=== PATIENT | female | born 1980 | race Caucasian/White ===

== ENCOUNTER 2018-08-21 14:15 | Inpatient (IN) | payer MEDICAID, OTHER ==
--- NOTE | 2018-08-21 15:22 | PDOC.FPROB ---
FMR OB H&P: HPI - History of Present Illness Chief Complaint: Medically indicated IOL for arrhythmia Indentification: 38 yo at 39.5 wks by 27.5 wk US History of Present Illness: This is a 38 yo at 39.5 wks by 27.5 wk US who presents to L&D for a scheduled induction for arrhythmia. Pt reports FM. Pt denies chest pain, changes in vision, LOF, vaginal bleeding, nausea, or vomiting. Patient states she has intermittent contractions, but nothing has been regular. When she does have contractions they are not strong. Primary Care Physician: Popeye Moseley MD FMR OB H&P: Current - Care : 5 Para: 2021 Gestational age: 39.5 Due date: 08/23/18 Dating Criteria: 27.5 wk US Course/Complications: Alcohol and tobacco use through 25 weeks Late to care, 25 weeks Dates by 27.5 wk US AMA Gallbladder discomfort - OB Labs Blood type: AB RH: positive Antibody Screen: negative HIV: negative RPR: negative HepBsAg: negative Rubella: immune Urine drug screen: negative Gonorrhea: negative Chlamydia: negative Pap Smear: HPV HIGH risk 1 hour gtt: positive 3 hour GTT: Negative A1c: 5.1 GBS: negative H&H: 12.1/34.8 (07/14/18) Platelets: 283 (07/14/18) - Additional Ultrasound Additional: Echocardiogram performed at 37.1wks 1. Intermittent, mostly conducted premature atrial contractions. No scot or tachyarrhythmia. 2. No evident cardiac structural abnormalities, given the limitations of echocardiography to detect small septal defects, minor valve anomalies, anomalies of pulmonary venous return, and patent foramen ovale, patent ductus arteriosus, or coarctation of the aorta 3. Normal biventricular size and systolic function 4. No pericardial effusion or evidence of hydrops 5. Normal hemodynamic doppler assessment FMR OB H&P: History - Past Medical History PMH: Gallbladder problems - OB History OB History: First 2001, 9 wk Spontaneous Second 2003, 9 wk spontaneous Third 2005, at 40wks, Female 7 lb, 12 oz Fourth 2008, at 40wks, Male 7lb, 10 oz - RELIGIOUS EDUCATION COORDINATOR History RELIGIOUS EDUCATION COORDINATOR History: Menses at 12/regular. No h/o STI or herpes. No h/o abnormal pap - Surgical History Sx History: none - Social History Social History: Reports 3 bottles of wine per week until week 25 Reports smoking while she drank until week 25 - Family History Family History: No family history of cancers or inheritable/genetic disorders FMR OB H&P: Medications - Current Home Medications: Medication Instructions Recorded Confirmed Type Pnv No.95/Ferrous Fum/Folic AC 1 tab PO DAILY 08/21/18 08/21/18 History [ Vitamins Tablet] Allergies/Adverse Reactions: Allergies Allergy/AdvReac Type Severity Reaction Status Date / Time No Allergy Information Allergy Verified 08/21/18 21:15 Available FMR OB H&P: ROS - Review of Systems General: denies: fever/chills, weight/appetite/sleep changes Eyes: denies: vision changes, scotomas ENT: denies: nasal congestion, rhinorrhea, sore throat Cardiovascular: denies: chest pain, palpitation, edema Respiratory: denies: cough, congestion, shortness of breath Gastrointestinal: denies: abdominal pain, nausea, vomiting, diarrhea, constipation Genitourinary (Female): reports: contractions. denies: dysuria, vaginal discharge, vaginal pain, vaginal bleeding, vaginal pressure Musculoskeletal: denies: pain, stiffness Neurologic: denies: numbness, syncope Integumentary: denies: itching, rash, lesions Hematologic/Lymphatic: denies: prolonged or excessive bleeding Psychological: denies: depression, anxiety FMR OB H&P: Vital Signs - Maternal Vital signs: BP 103/54 Pulse 90 Afebrile - Heart Tones Baseline: 140 Variability: moderate Acceleration: present Deceleration: absent Category: category 1 [place] contractions every: Irregular FMR OB H&P: Physical Exam - Physical Exam General: NAD, awake, alert and oriented HEENT: MMM, grossly normal vision, grossly normal hearing Neck: supple Heart: RRR, normal S1/S2, no murmurs/rubs/gallops General: CTAB, no respiratory distress Abdomen: soft, gravid, non-tender, bowel sound present Musculoskeletal: pulses present, FROM in all four extremities Neurological: no tremor, no focal deficit Skin: no rash, capillary refill <2 seconds Lymphatic: no unusual bruising or bleeding, no purpura Psychiatric: intact recent and remote memory, good judgement and insight, normal mood and affect - Pelvic Exam Vulva: normal hair distribution, appropriate sharla stage, no lesions, no discharge, no blood SVE: at 22:30 10/02/-3 Valdez score: 5 FMR OB H&P: A/P - Problem List (1) Term Current Visit: No Status: Acute Code(s): Z34.80 - ENCOUNTER FOR SUPRVSN OF NORMAL , UNSP TRIMESTER (2) cardiac arrhythmia Current Visit: No Status: Acute Code(s): GAR5151 - (3) Advanced maternal age (AMA) in Current Visit: No Status: Acute Code(s): UZF4788 - (4) Alcohol use affecting Current Visit: No Status: Acute Code(s): O99.310 - ALCOHOL USE COMPLICATING , UNSPECIFIED TRIMESTER (5) Tobacco use affecting in first trimester, antepartum Current Visit: No Status: Acute Code(s): O99.331 - SMOKING (TOBACCO) COMPLICATING , FIRST TRIMESTER (6) Tobacco use affecting in second trimester, antepartum Current Visit: No Status: Acute Code(s): O99.332 - SMOKING (TOBACCO) COMPLICATING , SECOND TRIMESTER (7) Encounter for induction of labor Current Visit: No Status: Acute Code(s): Z34.90 - ENCNTR FOR SUPRVSN OF NORMAL , UNSP, UNSP TRIMESTER Disposition: This is a at 39. by a 27.5 wk US (TJ 08/23/18) here for a scheduled induction for arrhythmia Term sIUP -Admit to L&D -LR 125 ml/hr -Initial cervical check: 3 at 22:30 -Valdez score 5; patient with 2 prior 's -Begin pitocin for augmentation arrhythmia -Following with MFM, recommended 39 wk IOL -Intermittent mostly conducted premature atrial contractions. No scot or tachyarrhythmia. Late to care -At ~25 wks exposure to tobacco and alcohol during first and second trimester -Stopped cold after realizing she was -Negative UDS in -Will repeat UDS AMA -Presented out of window for quad screen -Was following with MFM Gallbladder discomfort -Unknown significance, will likely need GI follow up Discussion: Date/Time: 02/11/19 1520 This H&P was discussed with Dr. Metcalf who agrees with the above documentation and plan. Signature: Stephanie Telles, DO PGY-2
[2018-08-21] MEDS ORDERED: Docusate 100 MG CAP PO PRN (21:07)
[2018-08-21] MEDS ORDERED: Acetaminophen 500 MG TAB PO PRN (21:07)
[2018-08-21] MEDS ORDERED: Promethazine HCl 25 MG/ML VIAL IM PRN (21:07)
[2018-08-21] MEDS ORDERED: Ondansetron PF 4 MG/2 ML Vial IVP PRN (21:07)
[2018-08-21] MEDS ORDERED: Lidocaine 1% (PF) 30 ML VIAL SC PRN (21:07)
[2018-08-21] MEDS ORDERED: Ibuprofen 800 MG TAB PO PRN (21:07)
[2018-08-21] MEDS: Lactated Ringer's 1,000 ML IV SCH (21:22)
[2018-08-21 21:58] LABS: Hemoglobin 12.4 g/dL (12.0-16.0); Mean Corpuscular Hemoglobin 30.2 pg (27.0-31.0); Mean Corpuscular Volume 88.9 fL (78.0-98.0); Mean Platelet Volume 7.8 fL (7.4-10.4); Platelet Count 258 thou/uL (130-400); RBC Distribution Width 12.1 % (11.5-14.5); White Blood Cell (WBC) Count 13.6 thou/uL (4.8-10.8)
[2018-08-21 22:36] LABS: Syphilis Antibody Nonreactive (Nonreactive); Syphilis Antibody Index 0.04 S/CO (<1.00 Non-Reactive)
[2018-08-21] MEDS ORDERED: NS w/ Oxytocin 10 units 500 ML IV SCH (22:45)
[2018-08-21 23:52] LABS: HBSAg Index 0.18 S/CO (0-0.99); Hep B Surf Ag Non-Reactive S/CO (NonReactive)
[2018-08-22 00:22] VITALS: BMI 33.3
[2018-08-22] MEDS ORDERED: Fentanyl 4 mcg/Bup 0.1% Cadd 100 ML ONE (00:55)
--- NOTE | 2018-08-22 01:01 | PDOC.LDPN ---
Labor & Delivery Progress Note - Subjective Subjective: painful contractions - Objective Vital signs reviewed and normal: yes General: NAD, breathing through contractions Uterine fundus: non tender Dilation: 4 Effacement: 50% Station: -2 FHT: category 1 (baseline 140, accelerations, no decels, moderate variability ) [place] contractions every: 3-4 mins Plan: continue plan of care -: Term sIUP -continue monitoring -LR 125 ml/hr - continue pitocin for augmentation - recheck in 2 hours
[2018-08-22] MEDS ORDERED: Lidocaine 1.5%/Epinephrine 1:200,000 5 ML AMPUL IJ ONE (01:08)
[2018-08-22] MEDS ORDERED: Ondansetron PF 4 MG/2 ML Vial IVP PRN ×2 (01:22→09:52)
[2018-08-22] MEDS ORDERED: ePHEDrine/0.9% NaCl/PF SYRINGE 50 mg/10 ml SLOW IVP PRN (01:22)
[2018-08-22] MEDS ORDERED: Naloxone HCl 0.4 mg/ml Vial IVP PRN ×2 (01:22)
[2018-08-22] MEDS ORDERED: diphenhydrAMINE 50 MG/ML VIAL IVP PRN (01:22)
[2018-08-22] MEDS ORDERED: Lactated Ringer's 500 ML IV PRN (01:22)
[2018-08-22] MEDS ORDERED: Eucerin (Mineral Oil/Petrolatum,White) 30 gm Jar TOP PRN (01:22)
[2018-08-22] MEDS ORDERED: Promethazine HCl 25 MG/ML VIAL IM PRN (01:22)
[2018-08-22] MEDS: Lactated Ringer's 1,000 ML IV SCH (01:24)
[2018-08-22] MEDS ORDERED: Communication Order-Pharmacy FS SCH (01:30)
[2018-08-22] MEDS ORDERED: Fentanyl 4 mcg/Bupivacaine 0.1% Cassette 100 ML EPIDURAL SCH (01:30)
--- NOTE | 2018-08-22 04:30 | PDOC.LDPN ---
Labor & Delivery Progress Note - Subjective Subjective: comfortable - Objective Vital signs reviewed and normal: yes General: NAD Uterine fundus: non tender Dilation: 4 Effacement: 50% Station: -2 FHT: category 1 (baseline 150, moderate variability, accelerations, no decels ) [place] contractions every: 2-3 mins Plan: continue plan of care -: Term sIUP -continue monitoring -LR 125 ml/hr - continue pitocin for augmentation - recheck in 2 hours
[2018-08-22] MEDS ORDERED: SODIUM CHLORIDE 0.9% EPIDURAL SCH (06:00)
[2018-08-22] MEDS ORDERED: BUPIVACAINE 0.5% EPIDURAL SCH (06:00)
--- NOTE | 2018-08-22 06:46 | PDOC.LDPN ---
Labor & Delivery Progress Note - Subjective Subjective: painful contractions - Objective Vital signs reviewed and normal: yes General: NAD Uterine fundus: non tender Dilation: complete Effacement: 100% Station: 1+ FHT: category 1 [place] contractions every: 2-3 mins AROM: clear fluid -: sIUP - complete cervix, epidural DCd 2/2 rxn - prepare for delivery
[2018-08-22] MEDS: NS / Oxytocin 40 units/1000ml 1,000 ML IV PRN ×2 (07:40→09:49)
[2018-08-22] MEDS ORDERED: Preparation H Ointment 28 GM TUBE PR PRN (09:52)
[2018-08-22] MEDS ORDERED: NS / Oxytocin 40 units/1000ml 1,000 ML IV SCH (09:52)
[2018-08-22] MEDS ORDERED: Adacel (T-DAP) 0.5 ML SYRINGE IM ONE (09:52)
[2018-08-22] MEDS ORDERED: Lanolin Ointment 7 GM TUBE TOP PRN (09:52)
[2018-08-22] MEDS ORDERED: Benzocaine/Menthol 20-0.5% 60 ML CAN TOP PRN (09:52)
[2018-08-22] MEDS ORDERED: Milk Of Magnesia 30 ML UDCUP PO PRN (09:52)
[2018-08-22] MEDS ORDERED: Bisacodyl 10 MG SUPP PR PRN (09:52)
[2018-08-22] MEDS ORDERED: Prenatal Vitamin 1 TAB PO SCH (10:45)
[2018-08-22] MEDS ORDERED: Docusate Calcium (SURFAK) 240 MG CAP PO SCH (10:45)
--- NOTE | 2018-08-22 10:45 | PDOC.EVN ---
Event Note - Event Note Event Note: Date/Time: 08/22/18 1040 I was present, assisted and supervised the vacuum assisted vaginal delivery of a viable female infant over an intact perineum. Apgars 8/9. Vacuum assisted delivery of decelerations need to expedite delivery. Vacuum cup placed on occiput. Single pull, no popoffs resulted in delivery of vertex in OP position. Shoulders and body delivered easily. No nuchal cords. Cords clamped and cut and taken to warmer for evaluation. 3V Cord. Placenta delivered spontaneously and intact. 2* perineal laceration repaired with 3-0 vicryl in usual fashion with good hemostasis. EBL 250 mL. Residents: Rafy/Lorelei
[2018-08-22] MEDS: Prenatal Vitamin 1 TAB PO SCH (13:33)
[2018-08-22] MEDS: Acetaminophen 325 MG TAB PO PRN ×2 (13:34→20:49)
[2018-08-22] MEDS: Ferrous Sulfate 325 MG TAB PO SCH (17:11)
[2018-08-22] MEDS: Ibuprofen 800 MG TAB PO SCH ×2 (17:40→23:45)
[2018-08-22] MEDS: Docusate Calcium (SURFAK) 240 MG CAP PO SCH (20:49)
[2018-08-23] MEDS: Ibuprofen 800 MG TAB PO SCH ×3 (06:31→21:20)
[2018-08-23] MEDS: Ferrous Sulfate 325 MG TAB PO SCH ×2 (08:17→17:42)
[2018-08-23] MEDS: Prenatal Vitamin 1 TAB PO SCH (08:18)
[2018-08-23] MEDS: Docusate Calcium (SURFAK) 240 MG CAP PO SCH ×2 (08:18→20:06)
--- NOTE | 2018-08-23 22:35 | PDOC.PP ---
Post Progress Note Post Day #: 1 Subjective: Patient denies complaints. Bleeding minimal. No pain. PO intake tolerated: yes Flatus: yes Ambulation: yes Vital Signs (12 hours) Temp Pulse Resp BP Pulse Ox 08/23/18 20:45 97.6 F 81 16 119/70 98 08/23/18 17:15 97.9 F 81 18 120/67 97 Weight Weight 90.718 kg - Physical Examination Cardiovascular: no m/r/g, RRR Respiratory: clear to auscultation bilaterally Abdominal: lochia, no distention Fundus firm & at: umbilicus Extremities: negative homans (B) Skin: no rash Psychiatric: A&Ox3, normal affect Result Diagrams: 08/21/18 21:22 Additional Labs: Post Labs Blood Type AB POSITIVE 08/21/18 21:22 Hep Bs Antigen Non-Reactive S/CO (NonReactive) 08/21/18 21:22 (1) Term Code(s): Z34.80 - ENCOUNTER FOR SUPRVSN OF NORMAL , UNSP TRIMESTER Status: Acute - Assessment/Plan A/P: 1) PPD#1 S/p VAVD- doing well. continue routine care. D/c home tomorrow
[2018-08-24] MEDS: Ibuprofen 800 MG TAB PO SCH (05:33)
[2018-08-24 08:20] VITALS: BP 98/51; TEMP 98
--- NOTE | 2018-08-24 09:15 | PDOC.PP ---
Post Progress Note Post Day #: 2 Subjective: pt doing well. no acute events overnight. denies minimal pain. controlled by motrin. Reports light lochia. up and getting around. Denies any dizziness, lightheadness or vision changes. denies any chest pain, sob or swelling. tolerating PO PO intake tolerated: yes Flatus: yes Ambulation: yes Vital Signs (12 hours) Temp Pulse Resp BP Pulse Ox 08/24/18 08:19 98.0 F 71 20 98/51 L 95 Weight Weight 90.718 kg - Physical Examination General: NAD Cardiovascular: no m/r/g, RRR Respiratory: clear to auscultation bilaterally, non-labored breathing Abdominal: + bowel sounds, lochia (reports as minimal), no distention, appropriately TTP Extremities: negative homans (B) Neurological: no gross focal deficits Psychiatric: A&Ox3, normal affect Result Diagrams: 08/21/18 21:22 Additional Labs: Post Labs Blood Type AB POSITIVE 08/21/18 21:22 Hep Bs Antigen Non-Reactive S/CO (NonReactive) 08/21/18 21:22 (1) Advanced maternal age (AMA) in Code(s): [id number] - Status: Acute (2) Alcohol use affecting Code(s): O99.310 - ALCOHOL USE COMPLICATING , UNSPECIFIED TRIMESTER Status: Acute (3) Term Code(s): Z34.80 - ENCOUNTER FOR SUPRVSN OF NORMAL , UNSP TRIMESTER Status: Acute (4) Tobacco use affecting in first trimester, antepartum Code(s): O99.331 - SMOKING (TOBACCO) COMPLICATING , FIRST TRIMESTER Status: Acute (5) Tobacco use affecting in second trimester, antepartum Code(s): O99.332 - SMOKING (TOBACCO) COMPLICATING , SECOND TRIMESTER Status: Acute - Assessment/Plan This is a ->3 who delivred a BETTY F @ 39.6 wks dated by a 27.5 wk US (TJ ) via vacuum assisted delivery on 06/21/19 Term , Delivered. -2 degree laceration repaired- intact, no sign redness or drainage. Pt reports pain well controlled with motrin. -Pt tolerating PO. Reports bleeding as minimal. -Bottle feeding -Routine post care Late to care -At ~25 wks exposure to tobacco and alcohol during first and second trimester -Stopped cold after realizing she was -Negative UDS in - AMA -Presented out of window for quad screen -Was following with MFM, following their recs Addendum - Attending - Attending Attestation Date/Time: 08/24/18 1352 I personally evaluated the patient and discussed the management with Dr. Moseley I agree with the History, Examination, Assessment and Plan documented above with any addition or exceptions noted below- Patient without complaints. Afebrile VSS. A/P: 1) PPD#2 s/p VAVD- Plan to d/c home today. F/u in 2 weeks at [facility].
[2018-08-24] MEDS: Ferrous Sulfate 325 MG TAB PO SCH (09:42)
[2018-08-24] MEDS: Prenatal Vitamin 1 TAB PO SCH (09:43)
[2018-08-24] MEDS: Docusate Calcium (SURFAK) 240 MG CAP PO SCH (09:43)
--- NOTE | 2018-08-28 09:43 | DN ---
DATE OF PROCEDURE: 08/22/2018 DELIVERING PHYSICIANS: 1. Dr. Hillman, PGY-1. 2. Dr. Moseley, PGY-2. PROCEDURE PERFORMED: 1. Vacuum-assisted vaginal delivery. ANESTHESIA: Epidural. ESTIMATED BLOOD LOSS: Reported as 250 mL. PREOPERATIVE DIAGNOSES: Term intrauterine , presented with prior history of alcohol use early in before she knew she was . POSTOPERATIVE DIAGNOSES: 1. Term intrauterine , delivered. 2. Term intrauterine , presenting with prior history of alcohol use early in before she knew she was . INDICATIONS: A 38-year-old, G5, P2, who presented to L and D for induction of labor due to arrhythmias noted on 37 and 1-week ultrasound by M. DELIVERY NOTE: This is a 38-year-old female, G5, P2-0-2-2 at 39 and 6 weeks. She delivered a viable female infant at 0739 hours. Following an uneventful antepartum course, a vigorous female was delivered over an intact perineum in the occiput posterior position. Anterior shoulder and then the remainder of the body delivered. No nuchal cord. Head was held down. The mouth and nares were bulb suctioned. Cord was clamped and cut. Cord bloods collected. Placenta delivered intact with three-vessel cord. Fundal massage was performed and the fundus was firm. The cervix and vagina were inspected and there was found to be a second-degree perineal laceration. Laceration was noted and repaired with 3-0 chromic suture in the usual fashion with good approximation and hemostasis. The patient had epidural for anesthesia. No local was needed. Infant went to nursery in good condition for routine care. Apgars were 8 and 9 at one and five minutes respectively. The patient tolerated delivery well and went to after routine recovery care. It should be noted that during delivery, during pushing, there were some noted like dropped beats and possible arrhythmia on monitoring. Job ID: [id number]
== END 2018-08-24 11:50 | disposition home or self-care (01) | DRG 805 ==
LOC: L&D 20:52 → 3SW 08-22 12:31 → EDSTATUS 08-23 14:14
PROVIDERS: ADMIT Family Medicine; ATTEND Family Medicine
PROC: 10D07Z6 Extraction of Products of Conception, Vacuum, Via Natural or Artificial Opening (ICD-10-PCS; principal; 2018-08-22)
PROC: 0KQM0ZZ Repair Perineum Muscle, Open Approach (ICD-10-PCS; 2018-08-22)
PROC: 3E033VJ Introduction of Other Hormone into Peripheral Vein, Percutaneous Approach (ICD-10-PCS; 2018-08-22)
DX: O76 Abnormality in fetal heart rate and rhythm complicating labor and delivery (principal); O99.42 Diseases of the circulatory system complicating childbirth; Z37.0 Single live birth; Z3A.39 39 weeks gestation of pregnancy; O70.1 Second degree perineal laceration during delivery; O99.334 Smoking (tobacco) complicating childbirth; F17.210 Nicotine dependence, cigarettes, uncomplicated; O99.310 Alcohol use complicating pregnancy, unspecified trimester
CPT/HCPCS: 51702; 85027; 86780; 86850; 86900; 86901; 86922; 87340; 88307; J1200; J2001; J2310; J3490; J7050